=== PATIENT | female | born 1990 | race Caucasian/White ===

== ENCOUNTER 2016-11-12 20:41 | Emergency (ER) | payer MEDICAID, SELFPAY ==
[~2016-11-12] VITALS: Ht 149.9 cm; Wt 49.8 kg
[2016-11-12 20:47] VITALS: BP 126/76
== END 2016-11-12 21:24 | disposition home or self-care (01) ==
LOC: ED 21:00
DX: K02.9 Dental caries, unspecified (principal)
CPT/HCPCS: 99281

== ENCOUNTER 2016-12-05 19:57 | Emergency (ER) | payer MEDICAID ==
[~2016-12-05] VITALS: Ht 147.3 cm; Wt 51.1 kg
[2016-12-05] MEDS ORDERED: CYCLOBENZAPRINE 10 MG TABLET PO ONE (21:00)
[2016-12-05] MEDS ORDERED: ACETAMINOPHEN 325 MG TABLET PO ONE (21:00)
[2016-12-05 21:04] LABS: BLOOD UREA NITROGEN 9 mg/dL (7-18)
[2016-12-05] MEDS ORDERED: ACETAMINOPHEN 325 MG TABLET ONE (21:05)
[2016-12-05] MEDS ORDERED: CYCLOBENZAPRINE 10 MG TABLET ONE (21:05)
[2016-12-05 21:17] LABS: DIFF TOTAL CELLS COUNTED 100 CELL DIFF
[2016-12-05 21:22] LABS: ANISOCYTOSIS 2+; MICROCYTOSIS 2+; VERIFY COUNTS? YES
[2016-12-05 21:23] LABS: GIANT PLATELETS 2+; HYPOCHROMIA 2+
[2016-12-05 21:24] VITALS: BP 114/72
== END 2016-12-05 22:31 | disposition home or self-care (01) ==
LOC: ED 21:58
DX: O26.892 Other specified pregnancy related conditions, second trimester (principal); S16.1XXA Strain of muscle, fascia and tendon at neck level, initial encounter; D50.9 Iron deficiency anemia, unspecified; I49.1 Atrial premature depolarization; X58.XXXA Exposure to other specified factors, initial encounter; Y93.89 Activity, other specified; Y99.8 Other external cause status; Y92.89 Other specified places as the place of occurrence of the external cause
CPT/HCPCS: 36415; 80048; 81003; 82040; 84439; 84443; 85025; 93005

== ENCOUNTER 2016-12-22 00:11 | Emergency (ER) | payer MEDICAID ==
[~2016-12-22] VITALS: Ht 147.3 cm; Wt 51.4 kg
[2016-12-22 00:13] VITALS: BP 129/76
== END 2016-12-22 02:16 | disposition home or self-care (01) ==
LOC: ED 02:10
DX: O23.32 Infections of other parts of urinary tract in pregnancy, second trimester (principal); Z3A.20 20 weeks gestation of pregnancy
CPT/HCPCS: 81001; 99283

== ENCOUNTER 2017-04-12 14:45 | Outpatient (CLI) | payer MEDICAID ==
[~2017-04-12] VITALS: Ht 148.6 cm; Wt 61.4 kg
[2017-04-12 15:00] VITALS: BP 125/78
[2017-04-12] MEDS ORDERED: BETAMETHASONE 6 MG/ML, 5ML IM SCH (15:00)
[2017-04-12] MEDS ORDERED: BETAMETHASONE 6 MG/ML, 5ML IM ONE (15:11)
[2017-04-12] MEDS ORDERED: PREN1TAB60 PO (15:33)
[2017-04-12] MEDS ORDERED: IRON1TAB60 PO (15:33)
[2017-04-12 15:44] LABS: HEMATOCRIT 35.3 % (34.6-47.8); HEMOGLOBIN 11.1 g/dL (11.7-16.4); WHITE BLOOD COUNT 6.6 x10^3/uL (3.4-10)
[2017-04-12 16:09] LABS: DIFF TOTAL CELLS COUNTED 100 CELL DIFF
[2017-04-12 16:11] LABS: VERIFY COUNTS? YES
[2017-04-12 16:39] LABS: ANISOCYTOSIS 2+; HYPOCHROMIA 1+
[2017-04-12 16:40] LABS: GIANT PLATELETS 1+; LARGE PLATELETS 1+; POLYCHROMASIA 1+
== END 2017-04-12 15:45 | disposition home or self-care (01) ==
LOC: LDOP 14:45
PROVIDERS: ATTEND Obstetrics & Gynecology
DX: O26.833 Pregnancy related renal disease, third trimester (principal); N13.4 Hydroureter; Z3A.35 35 weeks gestation of pregnancy
CPT/HCPCS: 36415; 59025; 85025; 99211; J0702; G0463

== ENCOUNTER 2017-04-13 14:50 | Outpatient (CLI) | payer MEDICAID ==
[~2017-04-13] VITALS: Ht 148.6 cm; Wt 61.2 kg
[~2017-04-13 14:50] MED LIST: IRON1TAB60 PO; PREN1TAB60 PO
[2017-04-13 15:00] VITALS: BP 121/85
[2017-04-13] MEDS ORDERED: BETAMETHASONE 6 MG/ML, 5ML IM ONE (15:00)
[2017-04-13] MEDS ORDERED: PLEASE ENTER HEIGHT AND WEIGHT MC SCH (15:30)
== END 2017-04-13 17:17 | disposition home or self-care (01) ==
LOC: LDOP 14:50
PROVIDERS: ATTEND Obstetrics & Gynecology
DX: O62.9 Abnormality of forces of labor, unspecified (principal); Z3A.35 35 weeks gestation of pregnancy
CPT/HCPCS: 59025; 96372; 99211; J0702; G0463

== ENCOUNTER 2017-04-22 07:03 | Inpatient (IN) | payer MEDICAID ==
[~2017-04-22] VITALS: Ht 149.9 cm; Wt 61.4 kg
[2017-04-22] MEDS ORDERED: NEWBORN KIT ONE (08:00)
[2017-04-22] MEDS ORDERED: LIDOCAINE 1%, 20ML ONE (08:00)
[2017-04-22] MEDS ORDERED: OXYTOCIN 30U/ 0.9% NaCL 500ML 500 ML ONE (08:01)
[2017-04-22] MEDS ORDERED: MISOPROSTOL 25 MCG TABLET ONE (08:01)
[2017-04-22] MEDS ORDERED: MISOPROSTOL 200 MCG TABLET ONE (08:01)
[2017-04-22] MEDS ORDERED: OXYTOCIN 30U/ 0.9% NaCL 500ML 500 ML IV PRN (08:04)
[2017-04-22] MEDS ORDERED: OXYTOCIN 30U/ 0.9% NaCL 500ML 500 ML IV ONE (08:04)
[2017-04-22 08:26] VITALS: BP 108/60
[2017-04-22] MEDS: LACTATED RINGERS 1,000 ML IV SCH ×3 (08:26→23:15)
[2017-04-22] MEDS ORDERED: TERBUTALINE 1 MG/ML, 1ML SQ PRN (08:30)
[2017-04-22] MEDS ORDERED: PLEASE ENTER HEIGHT AND WEIGHT MC SCH (08:30)
[2017-04-22] MEDS ORDERED: ONDANSETRON 2MG/ML, 2ML IVPush PRN (08:30)
[2017-04-22] MEDS ORDERED: CALCIUM CARBONATE 500 MG TAB.CHEW PO PRN (08:30)
[2017-04-22] MEDS ORDERED: MISOPROSTOL 25 MCG TABLET VG PRN (08:30)
[2017-04-22] MEDS ORDERED: FENTANYL PF 100 MCG/2ML IV PRN (08:30)
[2017-04-22 08:43] LABS: HEMATOCRIT 35.4 % (34.6-47.8); HEMOGLOBIN 11.3 g/dL (11.7-16.4); WHITE BLOOD COUNT 7.3 x10^3/uL (3.4-10)
[2017-04-22 09:11] LABS: ANISOCYTOSIS 2+; MICROCYTOSIS 1+
[2017-04-22 09:12] LABS: HYPOCHROMIA 1+
[2017-04-22 09:13] LABS: LARGE PLATELETS 2+
[2017-04-22] MEDS ORDERED: FENTANYL PF 100 MCG/2ML ONE ×4 (16:01→22:32)
[2017-04-22] MEDS: D5%-LACTATED RINGERS 1,000 ML IV SCH (16:04)
[2017-04-22] MEDS: FENTANYL PF 100 MCG/2ML IVPush PRN ×3 (17:28→22:34)
[2017-04-22 21:41] VITALS: BP 136/88
[2017-04-23] MEDS: D5%-LACTATED RINGERS 1,000 ML IV SCH ×4 (00:04→16:04)
[2017-04-23] MEDS ORDERED: FENTANYL PF 100 MCG/2ML ONE ×2 (00:31→03:11)
[2017-04-23] MEDS: FENTANYL PF 100 MCG/2ML IVPush PRN ×2 (00:36→03:15)
[2017-04-23] MEDS ORDERED: OXYTOCIN 30U/ 0.9% NaCL 500ML 500 ML ONE (02:23)
[2017-04-23] MEDS: LACTATED RINGERS 1,000 ML IV SCH ×3 (03:20→15:00)
[2017-04-23] MEDS ORDERED: FENTANYL/BUPIV./NS/PF 250 ML EPIDCONT ONE (04:04)
[2017-04-23] MEDS ORDERED: OXYTOCIN 30U/ 0.9% NaCL 500ML 500 ML IV PRN (08:04)
[2017-04-23] MEDS ORDERED: LABETALOL 5MG/ML, 20ML IVPush STA (15:33)
[2017-04-23] MEDS ORDERED: LABETALOL 5MG/ML, 20ML ONE (15:34)
[2017-04-23] MEDS ORDERED: METOPROLOL 1 MG/ML, 5ML IVPush ONE (17:00)
[2017-04-23] MEDS ORDERED: ONDANSETRON 2MG/ML, 2ML IV PRN (20:00)
[2017-04-23] MEDS ORDERED: CALCIUM CARBONATE 500 MG TAB.CHEW PO PRN (20:00)
[2017-04-23] MEDS ORDERED: ACETAMINOPHEN 325 MG TABLET PO PRN (20:00)
[2017-04-23] MEDS ORDERED: METOCLOPRAMIDE 5 MG/ML, 2ML IV PRN (20:00)
[2017-04-23] MEDS: OXYTOCIN 30U/ 0.9% NaCL 500ML 500 ML IV SCH (20:28)
[2017-04-23] MEDS ORDERED: MISOPROSTOL 200 MCG TABLET PR PRN (20:30)
[2017-04-23] MEDS: IBUPROFEN 600 MG TABLET PO PRN (21:57)
[2017-04-23 22:00] VITALS: BP 114/66
[2017-04-23] MEDS: DOCUSATE 100 MG CAPSULE PO PRN (23:31)
[2017-04-23] MEDS: HYDROcodone/APAP 5/325 TABLET PO PRN (23:31)
[2017-04-24 00:01] VITALS: BP 118/71
[2017-04-24 04:09] LABS: HEMATOCRIT 29.7 % (34.6-47.8); HEMOGLOBIN 9.6 g/dL (11.7-16.4); WHITE BLOOD COUNT 14.4 x10^3/uL (3.4-10)
[2017-04-24 04:25] VITALS: BP 112/67
[2017-04-24 04:28] LABS: DIFF TOTAL CELLS COUNTED 100 CELL DIFF
[2017-04-24 04:30] LABS: ANISOCYTOSIS 2+; HYPOCHROMIA 1+; MICROCYTOSIS 1+; OVALOCYTES 1+; VERIFY COUNTS? YES
[2017-04-24 04:31] LABS: LARGE PLATELETS 1+
[2017-04-24] MEDS: OXYTOCIN 30U/ 0.9% NaCL 500ML 500 ML IV SCH (05:52)
[2017-04-24] MEDS: PRENATAL VIT/IRON/FA 1 EACH TABLET PO SCH (07:23)
[2017-04-24] MEDS: DOCUSATE 100 MG CAPSULE PO PRN ×2 (07:23→20:50)
[2017-04-24] MEDS: HYDROcodone/APAP 5/325 TABLET PO PRN ×2 (07:24→16:21)
[2017-04-24] MEDS: IBUPROFEN 600 MG TABLET PO PRN ×2 (07:24→20:50)
[2017-04-24 08:00] VITALS: BP 122/68
[2017-04-24] MEDS: METOPROLOL TARTRATE 25 MG TABLET PO SCH (11:00)
[2017-04-24 20:50] VITALS: BP 140/83
[2017-04-25] MEDS: HYDROcodone/APAP 5/325 TABLET PO PRN ×4 (01:06→14:58)
[2017-04-25] MEDS ORDERED: FERR325T5 PO (03:44)
[2017-04-25] MEDS ORDERED: IBUP-1222 PO (03:44)
[2017-04-25] MEDS ORDERED: DOCU-131 PO (03:44)
[2017-04-25 05:43] LABS: HEMOGLOBIN 9.1 g/dL (11.7-16.4); WHITE BLOOD COUNT 10.2 x10^3/uL (3.4-10)
[2017-04-25 07:30] VITALS: BP 119/78
[2017-04-25] MEDS: PRENATAL VIT/IRON/FA 1 EACH TABLET PO SCH (07:38)
[2017-04-25] MEDS: METOPROLOL TARTRATE 25 MG TABLET PO SCH (09:23)
[2017-04-25 10:19] LABS: ASPARTATE AMINO TRANSFERASE 39 U/L (15-37); BLOOD UREA NITROGEN 10 mg/dL (7-18)
[2017-04-25 10:40] LABS: HEMATOCRIT 27.7 % (34.6-47.8); HEMOGLOBIN 8.9 g/dL (11.7-16.4); WHITE BLOOD COUNT 9.9 x10^3/uL (3.4-10)
[2017-04-25 10:41] LABS: ANISOCYTOSIS 2+; HYPOCHROMIA 1+; MICROCYTOSIS 1+
[2017-04-25 10:42] LABS: OVALOCYTES 1+
[2017-04-25 10:43] LABS: LARGE PLATELETS 1+
[2017-04-25] MEDS: DOCUSATE 100 MG CAPSULE PO PRN (10:51)
[2017-04-25] MEDS: IBUPROFEN 600 MG TABLET PO PRN (10:52)
[2017-04-25] MEDS ORDERED: FLU VACC QS2017-18 (36MOS+) UP/PF 0.5 ML IM-VACC ONE (15:00)
== END 2017-04-25 15:05 | disposition home or self-care (01) | DRG 774 ==
LOC: LDIP 07:03 → 2NW 04-23 21:36
PROVIDERS: ADMIT Obstetrics & Gynecology; ATTEND Obstetrics & Gynecology
PROC: 0KQM0ZZ Repair Perineum Muscle, Open Approach (ICD-10-PCS; principal; 2017-04-23)
PROC: 10E0XZZ Delivery of Products of Conception, External Approach (ICD-10-PCS; 2017-04-23)
PROC: 3E0234Z Introduction of Serum, Toxoid and Vaccine into Muscle, Percutaneous Approach (ICD-10-PCS; 2017-04-25)
DX: O99.02 Anemia complicating childbirth (principal); O98.82 Other maternal infectious and parasitic diseases complicating childbirth; D69.6 Thrombocytopenia, unspecified; O99.42 Diseases of the circulatory system complicating childbirth; I47.1 Supraventricular tachycardia; N13.30 Unspecified hydronephrosis; O99.12 Other diseases of the blood and blood-forming organs and certain disorders involving the immune mechanism complicating childbirth; N13.4 Hydroureter; O70.1 Second degree perineal laceration during delivery; O16.4 Unspecified maternal hypertension, complicating childbirth; O35.8XX0 Maternal care for other (suspected) fetal abnormality and damage, not applicable or unspecified; D50.9 Iron deficiency anemia, unspecified; R00.1 Bradycardia, unspecified; I49.1 Atrial premature depolarization; Z3A.37 37 weeks gestation of pregnancy; Z37.0 Single live birth; Z23 Encounter for immunization
CPT/HCPCS: 36415; 80053; 85025; 86850; 86900; 90686; 93005; J3010; J2590; J7120; J7121

== ENCOUNTER 2017-04-30 19:30 | Emergency (ER) | payer MEDICAID ==
[~2017-04-30] VITALS: Ht 147.3 cm; Wt 53.5 kg
[~2017-04-30 19:30] MED LIST changes: +DOCU-131 PO; +FERR325T5 PO; +IBUP-1222 PO
[2017-04-30 19:47] VITALS: BP 124/83
== END 2017-04-30 21:08 | disposition home or self-care (01) ==
LOC: ED 20:50
DX: O86.22 Infection of bladder following delivery (principal)
CPT/HCPCS: 81001; 87086; 99284

== ENCOUNTER 2019-10-13 12:11 | Emergency (ER) | payer MEDICAID ==
[~2019-10-13] VITALS: Ht 147.3 cm; Wt 59.0 kg
--- NOTE | 2019-10-13 12:25 | NUR ---
PT BACK FROM TRIAGE WITH CHIEF COMPLAINT OF "PIECE OF BOCANEGRA STUCK IN THROAT" NO DIFFICULTY BREATHING, VSS.
[2019-10-13] MEDS ORDERED: MAALOX/HYOSCYAMINE/LIDOCAINE 45 ML BTL PO ONE (12:30)
[2019-10-13] MEDS ORDERED: MAALOX/HYOSCYAMINE/LIDOCAINE 45 ML BTL ONE (12:34)
--- NOTE | 2019-10-13 13:34 | NUR ---
PT RESTING IN BED.
--- NOTE | 2019-10-13 14:06 | NUR ---
PT TO IMAGING
--- NOTE | 2019-10-13 14:45 | NUR ---
PROVIDER TO BEDSIDE- UPDATED PATIENT ON PARTIAL ESOPHAGEAL OBSTRUCTION: TO CALL GI FOR EGD FOR REMOVAL COMPREHENSIVE ADVISOR MADE AWARE-TO TRANSFER TO TRAUMA ROOM FOR PROCEDURE
--- NOTE | 2019-10-13 15:05 | NUR ---
MT NOTE: ENDO CALLED IN @3034
[2019-10-13] MEDS ORDERED: PROPOFOL 10 MG/ML, 20ML ONE (15:17)
[2019-10-13] MEDS ORDERED: PROPOFOL 10 MG/ML, 20ML IVPush ONE (15:30)
--- NOTE | 2019-10-13 15:53 | NUR ---
MD BARRON AND MD JESSICA AT BEDSIDE FOR EGD PROCEDURE. TOLERATED WELL, VSS.
[2019-10-13] MEDS ORDERED: SODIUM CHLORIDE FLUSH 10ML SYR IVF ONE (16:00)
[2019-10-13 16:04] VITALS: BP 115/70
--- NOTE | 2019-10-13 16:30 | NUR ---
DISCHARGE INSTRUCTIONS REVIEWED
== END 2019-10-13 16:35 | disposition home or self-care (01) ==
LOC: ED 12:24
DX: S10.15XA Superficial foreign body of throat, initial encounter (principal); X58.XXXA Exposure to other specified factors, initial encounter; Y93.89 Activity, other specified; Y92.89 Other specified places as the place of occurrence of the external cause; Y99.8 Other external cause status
CPT/HCPCS: 74220; 99285; J2704